=== PATIENT | male | born 1985 | race Caucasian/White ===

== ENCOUNTER 2018-11-16 23:37 | Emergency (ER) | payer SELFPAY ==
[~2018-11-16] VITALS: Ht 175.3 cm; Wt 72.6 kg
[2018-11-17 01:51] VITALS: BP 122/82
== END 2018-11-17 02:39 | disposition home or self-care (01) ==
LOC: ER 23:40
DX: S61.412A Laceration without foreign body of left hand, initial encounter (principal); Z88.6 Allergy status to analgesic agent; W01.0XXA Fall on same level from slipping, tripping and stumbling without subsequent striking against object, initial encounter; Y93.89 Activity, other specified; Y99.8 Other external cause status; Y92.89 Other specified places as the place of occurrence of the external cause
CPT/HCPCS: 73200